=== PATIENT | female | born 1995 | race Native Hawaiian/Other Pacific Islander ===

== ENCOUNTER 2022-11-26 12:04 | Outpatient (CLI) | payer BC, SELFPAY ==
--- NOTE | 2022-11-26 12:15 | CRLHL7_ITS ---
For Patients: As a result of the Century Cures Act, medical imaging exams and procedure reports are released immediately into your electronic medical record. You may view this report before your referring provider. If you have questions, please contact your health care provider. INDICATION: Complete placenta previa COMPARISON: None. TECHNIQUE: Real-time valdez-scale imaging of the pelvis was performed. FINDINGS: With transvaginal imaging, the cervix is closed and measures 3.0 cm. The posterior placenta is located 2.6 cm from the internal cervical os. The amniotic fluid is lower limits of normal with single deepest pocket 3.5 cm and 4 quadrant LAYTON 8.5 cm. heart rate 157 beats per minute. Vertex position. IMPRESSION: The edge of the placenta is located 2.6 cm from the internal cervical os. Lower limits normal amniotic fluid with LAYTON 8.5 cm. Dictated by Milo Alicea MD @ 11/26/2022 1:27:22 PM (Electronically Signed)
== END 2022-11-26 12:05 | disposition home or self-care (01) ==
LOC: US 12:04
PROVIDERS: Visit Provider Registered Nurse
DX: O44.00 Complete placenta previa NOS or without hemorrhage, unspecified trimester (principal)
CPT/HCPCS: 76815; 76817; 86787

== ENCOUNTER 2022-12-13 08:45 | Outpatient (CLI) | payer BC, SELFPAY ==
[2022-12-14 11:15] LABS: Strep B DNA Probe NEGATIVE (Negative)
[2022-12-15 23:12] LABS: Strep B Pen/Amox Allergy No
== END 2022-12-13 08:46 | disposition home or self-care (01) ==
LOC: NFLDREF 08:52
PROVIDERS: Visit Provider Obstetrics & Gynecology
DX: Z34.93 Encounter for supervision of normal pregnancy, unspecified, third trimester (principal); Z3A.36 36 weeks gestation of pregnancy
CPT/HCPCS: 87081; 87653

== ENCOUNTER 2022-12-31 05:31 | Inpatient (IN) | payer BC, SELFPAY ==
[2022-12-31] VITALS (26 sets, daily range): BP systolic 115–144; BP diastolic 58–89; PULSE 65–171; RESP 16–20; TEMP 36.4–36.9; O2SAT 82–100; BMI 26.6
[2022-12-31 05:31] LABS: Amnisure Rom* POSITIVE
--- NOTE | 2022-12-31 05:45 | P.LDBA_ITS ---
Subjective History of Present Illness Date Seen: 12/31/22 Narrative: Patient is being admitted to Labor and Delivery for early labor following SROM. She is a 27 year old at 39 0/7 weeks gestation. Her full history and physical was dictated by Dr. Rivers on 12/24/22. Please see this for details. Amnisure positive on arrival. Specific Issues/Plans G 1 P 0 Transfer of care at 31 5/7 weeks 1. Placenta previa-RESOLVED! -posterior placenta, 2.6 cm from internal os. Single deepest pocket of amniotic fluid 3.5 cm. Normal. 2. Family history of kidney disease. Father of baby with kidney cyst as an infant. Level 2 ultrasound performed and showed isolated choroid plexus cyst and no other anomalies. Posterior placenta previa visualized. COVID: Up-to-date according to patient Flu 2022: declined 12/13/22 06/08/2022 Blood type B positive Antibody screen negative Hemoglobin 13.2 Platelets 357 Rubella immune RPR nonreactive Hepatitis-B antigen nonreactive HIV nonreactive Gonorrhea and chlamydia both negative Urine culture negative Hepatitis C negative 05/31/2022 Pap Negative for intraepithelial lesion 07/28/2022 AFP negative 11/07/2022 Hemoglobin 11.8 10/18/2022 1 hour glucose 79 Ultrasounds: 06/08/2022 08/17/2022 level 2: Complete placenta previa, choroid plexus cyst 09/24/2022: Placenta previa 10/18/22: Placenta previa 0.77 from internal os OB - Problem Based A/P Additional Plan (1) Spontaneous onset of labor: Status: Acute (2) Rupture of membranes: Status: Acute Delivery/Labor/Induction Plan Plan: expectant management OB Result Labs GBS Status: negative OB Exam Physical Exam Vital signs: Temp Pulse Resp BP Pulse Ox 97.8 F 79 18 124/89 98 12/31/22 05:06 12/31/22 05:16 12/31/22 05:06 12/31/22 05:16 12/31/22 05:18 Narrative: Lungs: CTA bilaterally CV: RRR Detailed Labor and Delivery Exam Patient Gravid: Yes Dilation (cm): 4 Effacement (%): 80 Consistency: soft Contraction Frequency: 4 minutes Tachysystole: No Contraction intensity: Strong/Firm Fetus (Single) Station: +1 Amniotic Membrane Status: SROM Amniotic Membrane Fluid Description: Clear Heart Rate Baseline: 130 Monitor Accelerations: Present Monitor Decelerations: None Correction Variability: Moderate (6-25)
[2022-12-31] MEDS: OXYTOCIN 30 unit/500 ML in NS 30 UNIT/500 ML BAG 300 UNIT IVPB (08:27)
[2022-12-31] MEDS: LIDOCAINE 1 % PF 30 ML INJECTION (08:32)
[2022-12-31] MEDS: fentaNYL 100 MCG/2 ML inj IVP (08:37)
[2022-12-31] MEDS: IBUPROFEN 600 MG TABLET PO ×3 (10:26→23:02)
--- NOTE | 2022-12-31 12:40 | W.PM.VAGDEL1 ---
Procedure Delivery date: 12/31/22 Procedure Done: Global Estimated blood loss (mL): 150 Narrative: Matt Adkins) is a 27 year-old admitted on 12/31/2022 by 39w0d gestation for SROM at 0400 - clear fluid. Contractions were every 2-3 minutes. heart rate demonstrated baseline 135 bpm with moderate variability, + accelerations, negative decelerations; a category I tracing. GBS negative Labor Analgesia: Nitrous gas Pitocin: No during labor. 30 u pitocin after delivery for active 3rd stage management. Labor onset: 12/31/2022 at 0445 Complete: 12/31/2022 at 0654 Pushin12/31/2022 at 0655 heart tones during second stage were II - deep variable noted during the second stage down to 60s bpm with initial pushing. Fetus was OT at that time. Quick recovery after contractions and left lateral decubitus position. Variable became less severe after appropriate spontaneous rotation to OA. At that point the variables were to the 90s with brisk recovery. Moderate variability throughout. At 0827 a viable female delivered in vertex OA presentation over perineum via spontaneous vaginal delivery. was placed on maternal abdomen. Cord was clamped and cut after a 30-60 second delay. Nose and mouth were bulb suctioned. weight: pending. 8 at 1 minute and 9 at 5 minutes. Shoulder dystocia: No. Nuchal cord: No . Placenta delivered spontaneously and complete at 0830 with a 3 vessel cord. Placenta had significant amount of calcification - will send to pathology for analysis. Complications: None. Mother and were stable after delivery. Laceration(s): 2nd degree perineal and left sulcal. Her left sulcal laceration is shallow but long, extending close to the cervicovaginal junction, repaired with 2-0 vicryl in a continuous locking manner. Estimated blood loss: 150 mL. Sponge and needles counts are correct. Mother and were stable at the time of this note. Terri is planning on . Infant Gender: Female total score - 1 minute: 8 total score - 5 minute: 9
[2022-12-31] MEDS: ACETAMINOPHEN 500 MG TABLET 1000 MG PO ×2 (14:10→20:13)
[2023-01-01 04:20] VITALS: BP 115/66; PULSE 73; RESP 16; TEMP 36.9; O2SAT 97
[2023-01-01] MEDS: IBUPROFEN 600 MG TABLET PO ×2 (05:57→15:41)
[2023-01-01 07:19] LABS: Hemoglobin* 10.8 gm/dL (12.0-16.0)
[2023-01-01 07:45] VITALS: BP 95/64; PULSE 70; RESP 16; TEMP 36.7; O2SAT 97
--- NOTE | 2023-01-01 09:09 | PM.OBPNVD1 ---
OB - PN:Subj Subjective Time Seen by Provider: 09:00 Date Seen: 01/01/23 Patient comments OB post-: no complaints [place] status: Narrative: The patient generally feels well. She has had some low abdominal cramping and perineal discomfort. Lochia is normal. She continues to work on . OB - PN: Obj Exam Physical Exam: Vital signs: Temp Pulse Resp BP Pulse Ox O2 Del Method 98.4 F 73 16 115/66 97 Room Air 01/01/23 04:20 01/01/23 04:20 01/01/23 04:20 01/01/23 04:20 01/01/23 04:20 01/01/23 04:20 Constitutional: Constitutional: no acute distress Routine Respiratory Exam: Respiratory: Present CTA bilaterally Routine Cardiovascular Exam: Cardiovascular: Present RRR Routine Abdominal Exam: Abdominal: Present soft; Absent tenderness Fundus: Present firm Routine Extremities Exam: Extremities: Present normal inspection; Absent calf tenderness OB - PN: Obj Data Labs Labs: Laboratory Results - last 24 hr 01/01/23 06:45 Hgb 10.8 L OB - PN: A/P Delivery Assessment and Plan (1) Status post normal vaginal delivery: Status: Acute Plan day: 1 Plan: routine care Comments: Anticipate discharge tomorrow.
[2023-01-01] MEDS: ACETAMINOPHEN 500 MG TABLET 1000 MG PO ×2 (11:16→23:08)
[2023-01-01 11:51] VITALS: BP 110/81; PULSE 68; RESP 16; TEMP 36.8; O2SAT 98
[2023-01-01 21:08] VITALS: BP 123/86; PULSE 73; RESP 16; TEMP 36.9; O2SAT 98
[2023-01-02 04:53] VITALS: BP 127/84; PULSE 73; RESP 18; TEMP 36.9; O2SAT 98
[2023-01-02] MEDS: IBUPROFEN 600 MG TABLET PO (06:23)
[2023-01-02 12:00] VITALS: BP 120/78; PULSE 68; RESP 16; TEMP 36.9; O2SAT 98
--- NOTE | 2023-01-02 12:20 | P.DS_ITS ---
DS: Providers Provider Time Seen by Provider: 12:20 Date Seen: 01/02/23 Date of admission: 12/31/22 05:31 Primary care physician: Not a Local Provider Admitting Clinician: Maritza Corona MD Attending Physician on discharge: Maritza Corona MD Date of Discharge: 01/02/23 DS: Diagnosis Discharge Diagnosis (1) Status post normal vaginal delivery: Status: Acute Exam Const: Vital Signs, click to edit/add: Vital Signs - 24 hr 01/01/23 21:08 01/02/23 04:53 Temperature 98.5 F 98.4 F Pulse Rate [Pulse Oximeter] 73 73 Respiratory Rate 16 18 Blood Pressure [Ri ght Arm] 123/86 127/84 Pulse Oximetry 98 98 Oxygen Delivery Me thod Room Air Documenting provider has reviewed patient's vital signs: yes Common normals: no apparent distress and oriented x3 General appearance: cooperative and comfortable HENMT: Common normals: normocephalic Head and scalp: normocephalic Resp: Common normals: normal respiratory effort Cardio: Common normals: regular rate and regular rhythm Rate: regular rate Rhythm: regular rhythm GI: Common normals: soft to palpation and non-tender Inspection: normal to inspection Palpation: soft Extremity: Common normals: normal to inspection and no pedal edema Neuro: Common normals: oriented x3 Psych: Common normals: affect normal OB - DS: Summary Hospital Course Hospital Course: The patient is a 27 year old G 1 P 0 at 39 weeks gestation that was admitted to the [facility] on 12/31/22 for spontaneous onset of labor. She had an uncomplicated vaginal delivery. She delivered a viable female infant. She is breast feeding. the patient has done well. Peripartum Data Infant delivery method: Vaginal Laceration description: Perineal - 2nd Degree (2nd degree perineal and left sulcal. ) complications: none Gender: Female Status at Discharge Functional status at discharge: independent ambulation Overall status at discharge: patient is back to baseline Time Spent with Patient Time attestation: Total time spent providing and/or coordinating discharge services: Time spent: Less than 30 minutes Discharge Plan Discharge Disposition: Home, Self-Care Date of Admission: 12/31/22 05:31 Attending Provider on Discharge: Maritza Corona Primary Care Provider: Provider,Not a Local Condition: Stable Anticipated Discharge Date/Time: 01/02/23 12:24 Discharge Medications: New docusate sodium 100 mg Capsule 100 mg PO DAILY Qty: 30 0RF ibuprofen 600 mg Tablet 600 mg PO Q6H PRNQty: 30 0RF Continued DHA 200 mg capsule 200 mg PO DAILY Discharge Orders: Discharge Order (Routine); Ordered 01/02/23 Ordered By: Maritza Corona Additional Instructions: Discharge instructions were reviewed with the patient including signs and symptoms of infection and home going medications Nothing vaginally for 6 weeks: no tampons or intercourse Do not drive while taking narcotic pain medication(s) Off Work or School for 8 weeks Symptoms to report to doctor: * Bleeding that saturates more than one pad per hour * Passing clots larger than the size of a golf ball * Pain not relieved by prescribed medication * Fever above 100.4 degrees Fahrenheit * A foul vaginal odor * Difficulty in emotions, mood, and functions * Thoughts of hurting yourself and/or * Painful, reddened area in your breast * Any drainage, redness, or tenderness in your IV/epidural site * Severe headache that doesn't improve after taking medications * Changes in vision, including temporary loss of vision, blurred vision, and/or light sensitivity * Upper abdominal pain (usually under ribs on the right side) * Decrease in urination or painful, frequent urinating * Chest pain * Shortness of breath * Tenderness or pain with redness and/swelling in the calf(s) of your leg Optional 2-week visit: discuss infant feeding concerns, review control options and screen for anxiety/depression. 6-week visit for an annual exam. consultation services are available to all mothers and babies for the first year after delivery.? To make an appointment, please call [phone]. Activity Level: Activity as Tolerated Discharge Diet: Regular Follow Up Appointments: Provider,Not a Local [Primary Care Provider] - Forms: [employer] Info Instructions
== END 2023-01-02 13:45 | disposition home or self-care (01) | DRG 560 ==
LOC: OB OUT 05:32 → OB 05:32
PROVIDERS: Obstetrics & Gynecology; Admitting Provider Obstetrics & Gynecology; Visit Provider Obstetrics & Gynecology
DX: O70.1 Second degree perineal laceration during delivery (principal); Z3A.39 39 weeks gestation of pregnancy; Z37.0 Single live birth
CPT/HCPCS: 36415; 84112; 85018; 88307; A9270; J2001; J3010

== ENCOUNTER 2024-03-19 13:55 | Outpatient (CLI) | payer BC, SELFPAY ==
--- NOTE | 2024-03-19 14:00 | CRLHL7_ITS ---
For Patients: As a result of the Cures Act, medical imaging exams and procedure reports are released immediately into your electronic medical record. You may view this report before your referring provider. If you have questions, please contact your health care provider. INDICATION: First trimester scan, establish dates. COMPARISON: None. TECHNIQUE: Real-time valdez-scale imaging of the pelvis was performed. FINDINGS: Sonographic imaging demonstrates a single living intrauterine gestation. The embryo demonstrates a regular cardiac rate measuring 167 beats per minute. The embryo`s crown-rump length measurement of 3.5 cm corresponds to a gestational age of 10 weeks 3 days with a sonographic due date of 10/12/2024. There is a normal-appearing yolk sac. There are no gross abnormalities noted within the embryo at this early state of development. The gestational sac has a normal appearance. There is a 3.1 x 0.5 x 0.5 cm perigestational hemorrhage. The amount of fluid within the sac appears appropriate for gestational age. The cervix is closed. The myometrium appears normal. Normal left ovary. Right ovary not visualized. There are no suspicious fluid collections noted in the cul-de-sac. IMPRESSION: Single living intrauterine measuring 10 weeks 3 days and sonographic due date 10/12/2024. Subchorionic hemorrhage measures 3.1 x 0.5 x 0.5 cm. Dictated by Milo Alicea MD @ 03/20/2024 1:22:55 PM (Electronically Signed)
== END 2024-03-19 13:56 | disposition home or self-care (01) ==
LOC: US 13:56
PROVIDERS: Visit Provider Physician Assistant
DX: Z34.91 Encounter for supervision of normal pregnancy, unspecified, first trimester (principal); O20.9 Hemorrhage in early pregnancy, unspecified; Z3A.10 10 weeks gestation of pregnancy
CPT/HCPCS: 76801; 83021; 86592; 86703; 86704; 86706; 86762; 86787; 86803; 86850; 86900; 86901; 87086; 87340; 87491; 87591

== ENCOUNTER 2024-05-30 14:18 | Outpatient (CLI) | payer BC, SELFPAY | END 2024-05-30 14:19 | disposition home or self-care (01) | LOC: US 14:19 | PROVIDERS: Visit Provider Physician Assistant | DX: Z34.92 Encounter for supervision of normal pregnancy, unspecified, second trimester (principal); Z84.1 Family history of disorders of kidney and ureter; Z3A.20 20 weeks gestation of pregnancy | CPT/HCPCS: 76811 ==

== ENCOUNTER 2024-08-07 08:35 | Outpatient (CLI) | payer BC, SELFPAY | END 2024-08-07 08:36 | disposition home or self-care (01) | LOC: NFLDREF 08-09 16:06 | PROVIDERS: Visit Provider Obstetrics & Gynecology | DX: Z34.83 Encounter for supervision of other normal pregnancy, third trimester (principal) | CPT/HCPCS: 86592 ==

== ENCOUNTER 2024-09-21 10:28 | Outpatient (CLI) | payer OTHER, SELFPAY | END 2024-09-21 10:29 | disposition home or self-care (01) | LOC: NFLDREF 09-25 14:46 | PROVIDERS: Visit Provider Obstetrics & Gynecology | DX: Z34.83 Encounter for supervision of other normal pregnancy, third trimester (principal) | CPT/HCPCS: 87081; 87653 ==

== ENCOUNTER 2024-10-15 06:15 | Inpatient (IN) | payer OTHER, SELFPAY ==
[2024-10-15] VITALS (22 sets, daily range): BP systolic 88–148; BP diastolic 55–93; PULSE 54–80; RESP 16–20; TEMP 36.7–36.8; O2SAT 97–99; BMI 25.9
--- NOTE | 2024-10-15 07:14 | W.PM.LDBA ---
Subjective History of Present Illness Time Seen by Provider: 07:00 Date Seen: 10/15/24 Narrative: Patient is being admitted to Labor and Delivery for active labor following spontaneous rupture of membranes at term. She is a 29 year old at 40 0/7 weeks gestation. Her full history and physical was dictated by Dr. Rivers on 09/28/24. Please see this for details. She experienced SROM of clear fluid at 0540 this morning. Contractions began shortly thereafter. Currently using nitrous oxide for contraction pain. Specific Issues/Plans Partner: [] H&P: 09/28 Dr. Rivers # family history of kidney disease, FOB: renal cyst as a infant Level 2 ultrasound: normal anatomy on 05/30/24. kidneys normal bilaterally. Imagin05/30/24: Level 2 US. Posterior placenta without previa, 3 vessel cord, MVP 4.6 cm, EFW 62.2%, AC 64.8%, normal anatomy Vaccinations: COVID: Planning on obtaining at work Flu: Planning on obtaining a work Tdap: 08/07/24 RSV: N/A 32 week mental health: 08/27/24 Hgb: 12.2 09/05/24 Last pap: 06/08/2022 OB - Problem Based A/P Additional Plan (1) SROM (spontaneous rupture of membranes): Status: Acute (2) Spontaneous onset of labor: Status: Acute Plan Anticipate vaginal delivery. Delivery/Labor/Induction Plan Plan: expectant management OB Exam Physical Exam Vital signs: Pulse BP Pulse Ox 75 131/89 99 10/15/24 06:16 10/15/24 06:16 10/15/24 06:00 Detailed Labor and Delivery Exam Patient Gravid: yes Dilation (cm): 8 Effacement (%): 100 Cervix position: mid Consistency: soft Contraction intensity: Strong/Firm Fetus (Single) Station: 0 Amniotic Membrane Status: SROM Amniotic Membrane Fluid Description: Clear Heart Rate Baseline: 120 Monitor Accelerations: Present Monitor Decelerations: None Detention Variability: Moderate (6-25)
[2024-10-15] MEDS: miSOPROStoL 800 MCG/4 TABLET PR (09:30)
[2024-10-15] MEDS: IBUPROFEN 600 MG TABLET PO ×2 (10:18→16:42)
--- NOTE | 2024-10-15 10:28 | W.PM.OBVAGDE ---
OB Procedure Vag Delivery Mother Details Mother Details: The patient is a 29 year-old, 2, Para 1001, admitted on 10/15/24 at 40.0 weeks gestation in active labor following spontaneous rupture of membranes. : 2 Para: 1 Weeks Gestation: 40.0 Admission Date: 10/15/24 Additional Details Amniotic Membrane Status: SROM Amniotic Membrane Rupture Date: 10/15/24 Amniotic Membrane Rupture Time: 05:40 Amniotic Membrane Fluid Description: Clear Analgesia/Anesthesia Type: Nitrous Oxide Waterbirth: No Pitcoin: No Labor Onset: 05:40 Complete: 07:57 Pushin:44 Heart: heart tones during second stage were 110-130 baseline with variable decelerations, category two. Good variability and accelerations between contractions. Delivery Details Delivery Date: 10/15/24 Delivery Time: 08:43 Route of delivery: Gender: Female Infant Viability: Alive; Heart Rate Present Position at Delivery: OA Delivery Details: The patient a strong urge to push when cervical dilatation reached 8 cm. She began involuntarily pushing on her own with contractions when her cervix was an anterior rim. During the second stage, presentation was thought to be LOP and asynclitic. The patient was encouraged to push in alternative positions to affect rotation and descent. Positions utilized: right and left lateral recumbent, hands and knees, and lithotomy. Ultimately, the fetus did rotate prior to delivery. Delivered via spontaneous vaginal delivery. was placed on maternal abdomen.? Cord was clamped and cut after a 30-60 second delay. Nose and mouth were bulb suctioned.? weight pending. Following delivery of the placenta, 10 units IM Pitocin were administered, followed by 100 mg rectal Cytotec. Placenta was inspected and appeared to be intact, with one small area of irregularity with calcification. Additional Details Shoulder Dystocia: No Placenta Delivery Time: 08:48 Placental Delivery Description: Spontaneous Procedure Done: Global Blood Loss: 100 Laceration: None Episiotomy Description: None Blood Loss Measurement Type: QBL Bakri Used: No Sponge/Need Count Correct: Yes Cord Vessel Description: 3 Vessels Event Summary Status: Mother and were stable after delivery. Disposition: floor
[2024-10-16 03:45] VITALS: BP 94/62; PULSE 68; RESP 16; TEMP 36.6; O2SAT 98
[2024-10-16 06:17] LABS: Hemoglobin* 10.5 gm/dL (12.0-16.0)
[2024-10-16] MEDS: DOCUSATE SODIUM 100 MG CAPSULE PO (09:13)
[2024-10-16] MEDS: LANOLIN CREAM 1 APPLIC TOPICAL (09:13)
[2024-10-16 09:15] VITALS: BP 110/70; PULSE 63; RESP 16; O2SAT 98
--- NOTE | 2024-10-16 11:14 | P.DS_ITS ---
DS: Providers Provider Date Seen: 10/16/24 Date of admission: 10/15/24 06:15 Primary care physician: Not a Local Provider Admitting Clinician: Edda Saleem MD Attending Physician on discharge: Shanda Richardson CNM DS: Diagnosis Discharge Diagnosis (1) care and examination immediately after delivery: Status: Acute (2) Lactating mother: Status: Acute Exam Narrative: Exam Narrative: GENERAL APPEARANCE:? normal affect, alert, no distress MOOD:? appropriate CHEST:? clear to auscultation HEART:? regular rate and rhythm ABDOMEN:? soft, non-tender the uterine fundus is 1 below Umbilicus, Midline and is appropriate for the stage of recovery. PERINEUM:? mild edema of the perineum. EXTREMITIES:? normal and no edema Const: Vital Signs, click to edit/add: Vital Signs - 24 hr 10/15/24 12:32 10/15/24 16:35 10/15/24 20:07 Temperature 98.1 F 98.1 F Pulse Rate [Pulse Oximeter] 76 67 70 Respiratory Rate 16 16 16 Blood Pressure [Ri ght Arm] 110/73 88/55 L 105/72 Pulse Oximetry 97 97 97 Oxygen Delivery Me thod Room Air Room Air Room Air 10/15/24 23:38 10/16/24 03:45 10/16/24 09:15 Temperature 98.0 F 97.9 F Pulse Rate [Pulse Oximeter] 80 68 63 Respiratory Rate 16 16 16 Blood Pressure [Ri ght Arm] 97/61 94/62 110/70 Pulse Oximetry 97 98 98 Oxygen Delivery Me thod Room Air Room Air Room Air Documenting provider has reviewed patient's vital signs: yes OB - DS: Summary Hospital Course Hospital Course: Matt is a 29 y.o. G 2 P 2 who was admitted to [facility] for spontaneous onset of labor. ?She had a NVD that was uncomplicated by. The patient feels well. ?The pain is well controlled with current medications. ?She has no new complaints. ?She is breast feeding and reports things are going well. the patient has done well.? Vitals have been stable.? She has remained afebrile.? Has a good appetite, is tolerating a general diet. ?She is voiding without difficulty.? She is passing gas and has not had a bowel movement.? She is ambulating and denies any dizziness.? Has small amount of rubra lochia. She is planning condoms for prevention. Problems: none Discharge home with baby.? Follow up in 2 weeks and 6 weeks.? , may see if needed? Hgb 10.5. Iron supplement ordered orally every other day?? For pain control of perineum, breast and pelvic pain, take 600 mg Ibuprofen every 6 hours as needed by mouth or 1000 mg acetaminophen (Tylenol) every 6 hours by mouth as needed. You can alternate these so you are taking something every 3 hours as needed. A heating pad can also be used for your abdomen or breasts. You may also take docusate sodium up to twice daily to soften your stools and help to prevent constipation. You may wean off of it when your stools return to normal.? Peripartum Data Infant delivery method: Vaginal Laceration description: None complications: none [place] Gender: Female Infant Discharge Plan: Home Status at Discharge Functional status at discharge: independent ambulation Overall status at discharge: patient is progressing back to baseline Time Spent with Patient Time attestation: Total time spent providing and/or coordinating discharge services: Time spent: Less than 30 minutes Discharge Plan Discharge Disposition: Home, Self-Care Date of Admission: 10/15/24 06:15 Attending Provider on Discharge: Shanda Richardson Primary Care Provider: Provider,Not a Local Condition: Stable Anticipated Discharge Date/Time: 10/16/24 12:00 Discharge Medications: New acetaminophen 500 mg Tablet 1,000 mg PO Q6H PRNQty: 0 0RF docusate sodium 100 mg Capsule 100 mg PO DAILY Qty: 60 0RF ibuprofen 600 mg Tablet 600 mg PO Q6H PRNQty: 60 0RF Continued Tums 300 mg (750 mg) tablet,chewable 300 mg PO TID PRN [id number] 3 fatty no.1 27-1-300 mg capsule 300 cap PO DAILY Discharge Orders: Discharge Order (Routine); Ordered 10/16/24 Ordered By: Shanda Richardson Patient Education: OB Over the Counter Medication Information, OB Vaginal/Breast Feeding Additional Instructions: Discharge instructions were reviewed with the patient including signs and symptoms of infection and home going medications Nothing vaginally for 6 weeks: no tampons or intercourse Off Work or School for 6 weeks 2-week visit: discuss feeding concerns, review control options and screen for anxiety/depression. 6-week visit for an annual exam. consultation services are available to all mothers and babies for the first year after delivery.? To make an appointment, please call [phone]. Activity Level: Activity as Tolerated and No strenuous activity Discharge Diet: Regular Follow Up Appointments: [facility] [Provider Group] Forms: [employer] Info Instructions
== END 2024-10-16 13:57 | disposition home or self-care (01) | DRG 807 ==
LOC: OB OUT 06:16 → OB 06:16
PROVIDERS: Obstetrics & Gynecology; Admitting Provider Obstetrics & Gynecology; Visit Provider Obstetrics & Gynecology
DX: O80 Encounter for full-term uncomplicated delivery (principal); Z37.0 Single live birth; Z3A.40 40 weeks gestation of pregnancy
CPT/HCPCS: 36415; 85018; 86592; A9270; J2590